=== PATIENT | male | born 1980 | race American Indian/Alaskan Native ===

== ENCOUNTER 2018-07-15 16:41 | Inpatient (IN) | payer OTHER ==
[2018-07-15] MEDS ORDERED: Sodium Chloride 0.9% 1,000 ML IV ONE ×3 (18:04→22:09)
--- NOTE | 2018-07-15 18:04 | C.PDOC ---
History Of Present Illness 38 y/o male presents to the ED for ETOH withdrawal. Last used days ago. Patient now reports nausea, vomiting, with clear emesis. Also complains of diffuse myalgias and shakes. Patient states trying to self-detox. Denies any seizures. Denies other drug use. + History of insulin-dependent diabetes mellitus, admits elevated glucose today. <Ivis White - Last Filed: 07/15/18 18:52> History Per: Patient History/Exam Limitations: no limitations Onset/Duration Of Symptoms: Days Current Symptoms Are (Timing): Still Present Modifying Factor(s): Alcohol Associated Symptoms: Other (withdrawal) <Ivis White - Last Filed: 07/15/18 18:52> <Joy Correia - Last Filed: 07/15/18 21:53> Time Seen by Provider: 07/15/18 17:53 Chief Complaint (Nursing): Substance Abuse Past Medical History Reviewed: Historical Data, Nursing Documentation, Vital Signs Vital Signs: Last Vital Signs Temp 98.7 F 07/15/18 16:51 Pulse 124 H 07/15/18 16:51 Resp 18 07/15/18 16:51 BP 168/95 H 07/15/18 16:51 Pulse Ox 99 07/15/18 16:51 - Medical History PMH: Diabetes (IDDM) Family History: States: No Known Family Hx - Social History Hx Tobacco Use: Yes Hx Alcohol Use: Yes Hx Substance Use: No - Immunization History Hx Tetanus Toxoid Vaccination: No Hx Influenza Vaccination: No Hx Pneumococcal Vaccination: No <Ivis White - Last Filed: 07/15/18 18:52> Vital Signs: Last Vital Signs Temp 98.7 F 07/15/18 16:51 Pulse 116 H 07/15/18 20:22 Resp 20 07/15/18 20:22 BP 140/88 07/15/18 20:22 Pulse Ox 96 07/15/18 20:22 <Joy Correia - Last Filed: 07/15/18 21:53> Review Of Systems Except As Marked, All Systems Reviewed And Found Negative. Constitutional: Negative for: Fever Cardiovascular: Negative for: Chest Pain Respiratory: Negative for: Shortness of Breath Gastrointestinal: Positive for: Nausea, Vomiting. Negative for: Hematemesis Musculoskeletal: Positive for: Other (generalized myalgias, shakes) Psych: Positive for: Withdrawal (from alcohol). Negative for: Suicidal ideation, Other (homicidal ideation) <Ivis White - Last Filed: 07/15/18 18:52> Physical Exam - Physical Exam Appears: Toxic (mildly toxic), In Acute Distress (moderate distress) Skin: Warm, Dry, No Jaundice Head: Atraumatic, Normacephalic Eye(s): bilateral: Normal Inspection, PERRL, EOMI, Other (ANICTERIC) Neck: Normal ROM, Supple Chest: Symmetrical Cardiovascular: Rhythm Regular (but tachycardic) Respiratory: Normal Breath Sounds, No Rales, No Rhonchi, No Wheezing, Other (NARD) Gastrointestinal/Abdominal: Soft, No Tenderness, No Distention, No Guarding Extremity: Bilateral: Atraumatic, Normal Color And Temperature, Normal ROM Pulses: Left Dorsalis Pedis: Normal, Right Dorsalis Pedis: Normal Neurological/Psych: Oriented x3, Other (No focal deficits; Calm, cooperative, +ETOH withdrawal) <Ivis White - Last Filed: 07/15/18 18:52> ED Course And Treatment - Laboratory Results Result Diagrams: 07/15/18 18:44 ECG: Interpreted By Me, Viewed By Me ECG Rhythm: Sinus Tachycardia Rate From EC O2 Sat by Pulse Oximetry: 99 (RA) Pulse Ox Interpretation: Normal <Ivis White - Last Filed: 07/15/18 18:52> - Laboratory Results Result Diagrams: 07/15/18 18:44 07/15/18 18:44 Lab Interpretation: Abnormal (Glucose 335, lactate 3.9, anion gap 28, HCO3 20) Reevaluation Time: 21:37 Reassessment Condition: Improved (after IV fluids, Ativan, Librium, Zofran and T oradol.) - Physician Consult Information Time Consulting Physician Contacted: 21:38 Physician Contacted: Randolph Faye Outcome Of Conversation: He will accept patient on his service for management of diabetes with alcohol withdrawal. <Joy Correia - Last Filed: 07/15/18 21:53> Progress - Re-Evaluation Re-evaluation Note: 07/15/18 18:04 D/W CRISIS NEREIDA, WILL EVAL IN ER - Data Reviewed Data Reviewed: Lab, EKG, Old records <Ivis White - Last Filed: 07/15/18 18:52> Medical Decision Making Medical Decision Making: Impression: Detox, alcohol abuse Initial Plan: --Labs --EKG --IV fluids --Ativan 1 mg IVP --Librium 100 mg PO --Toradol 30 mg IVP --Zofran 4 mg IVP --Pending crisis eval <Ivis White - Last Filed: 07/15/18 18:52> Medical Decision Makin:00 Patient endorsed to me at this time, awaiting crisis eval and final disposition. 21:39 No detox beds available. Paged Dr. Faye to discuss medical admission. <Joy Correia - Last Filed: 07/15/18 21:53> Disposition - Disposition Disposition Time: 19:00 <ChristopherIvis - Last Filed: 07/15/18 18:52> - Disposition Disposition Time: 21:52 - POA Present On Arrival: Poor Glycemic Control <Joy Correia - Last Filed: 07/15/18 21:53> - Disposition Disposition: HOSPITALIZED Condition: IMPROVED - Clinical Impression Clinical Impression: Alcohol withdrawal, Uncontrolled diabetes mellitus - Scribe Statement The provider has reviewed the documentation as recorded by the Scribe (Katerin Yousif) Provider Attestation: All medical record entries made by the Scribe were at my direction and personally dictated by me. I have reviewed the chart and agree that the record accurately reflects my personal performance of the history, physical exam, medical decision making, and the department course for this patient. I have also personally directed, reviewed, and agree with the discharge instructions and disposition. <ChristopherIvis - Last Filed: 07/15/18 18:52> Physician Patient Turnover Patient Signed Over To: Joy Correia Handoff Comments: fu: labs, dispo <Ivis White - Last Filed: 07/15/18 18:52>
[2018-07-15 18:47] LABS: BASO % 0.3 % (0.0-2.0); HEMOGLOBIN 15.8 g/dL (12.0-18.0); LYMPH # 0.5 K/uL (1.0-4.3); LYMPH % 3.4 % (20.0-40.0); MEAN CELL VOLUME 95.8 fL (80.0-94.0); MEAN CORPUSCULAR HEMOGLOBIN 31.7 pg (27.0-31.0); MEAN CORPUSCULAR HGB CONC 33.1 g/dL (33.0-37.0); MEAN PLATELET VOLUME 7.5 fL (7.2-11.7); MONO # 1.1 K/uL (0.0-0.8); MONO % 8.1 % (0.0-10.0); NEUT # 11.9 K/uL (1.8-7.0); NEUT % 88.2 % (50.0-75.0); PLATELET COUNT 247 K/uL (130-400); RBC 4.98 Mil/uL (4.40-5.90); WHITE BLOOD COUNT 13.5 K/uL (4.8-10.8)
[2018-07-15 18:54] LABS: URINE BACTERIA RARE (<OCC); URINE BILIRUBIN NEGATIVE (NEGATIVE); URINE BLOOD NEGATIVE (NEGATIVE); URINE CLARITY Clear (Clear); URINE COLOR Straw (YELLOW); URINE GLUCOSE (UA) 3+ mg/dL (Normal); URINE LEUKOCYTE ESTERASE NEG Leu/uL (Negative); URINE PROTEIN NEGATIVE (NEGATIVE); URINE UROBILINOGEN NORMAL mg/dL (0.2-1.0)
[2018-07-15 18:57] LABS: VENOUS BLOOD GAS BASE EXCESS -5.4 mmol/L (0.0-2.0); VENOUS BLOOD GAS PCO2 38 mmHg (40-60); VENOUS BLOOD GAS PO2 41 mm/Hg (30-55); VENOUS BLOOD PH 7.33 (7.32-7.43)
[2018-07-15 19:02] LABS: ALB/GLOB RATIO 1.6 (1.0-2.1); ALBUMIN 4.8 g/dL (3.5-5.0); ALT/SGPT 54 U/L (21-72); AST/SGOT 56 U/L (17-59); BLOOD UREA NITROGEN 19 mg/dL (9-20); CALCIUM 10.1 mg/dl (8.6-10.4); GFR NON-AFRICAN AMERICAN > 60
[2018-07-15 19:13] LABS: BARBITURATES, UR NEGATIVE (NEGATIVE); BENZODIAZEPINES, UR NEGATIVE (NEGATIVE); OPIATES, UR NEGATIVE (NEGATIVE); PHENCYCLIDINE, UR NEGATIVE (NEGATIVE)
[2018-07-15 19:19] LABS: BANDS 1 % (0-2); LARGE PLATELETS PRESENT; LYMPHOCYTE 4 % (20-40); MONOCYTE 7 % (0-10); NEUTROPHIL 88 % (50-75); PLATELET ESTIMATE NORMAL (NORMAL); TOTAL CELLS COUNTED 100
[2018-07-15] MEDS ORDERED: Sodium Chloride 0.9% 2,000 ML ONE (19:25)
[2018-07-16 00:55] VITALS: RESP 20
[2018-07-16 08:37] LABS: HEMOGLOBIN 13.9 g/dL (12.0-18.0); MEAN CELL VOLUME 95.8 fL (80.0-94.0); MEAN CORPUSCULAR HEMOGLOBIN 32.7 pg (27.0-31.0); MEAN CORPUSCULAR HGB CONC 34.1 g/dL (33.0-37.0); MEAN PLATELET VOLUME 7.9 fL (7.2-11.7); RBC 4.25 Mil/uL (4.40-5.90); RED CELL DISTRIBUTION WIDTH 13.4 % (11.5-14.5); WHITE BLOOD COUNT 7.4 K/uL (4.8-10.8)
[2018-07-16] MEDS: (Novolog) Insulin Aspart, Recombinant 100 u/ml 10 ml vial SC SCH ×5 (08:54→22:20)
[2018-07-16 09:01] LABS: ALB/GLOB RATIO 1.5 (1.0-2.1); ALBUMIN 3.7 g/dL (3.5-5.0); ALT/SGPT 44 U/L (21-72); AST/SGOT 36 U/L (17-59); BLOOD UREA NITROGEN 21 mg/dL (9-20); CALCIUM 8.9 mg/dl (8.6-10.4); GFR NON-AFRICAN AMERICAN > 60
[2018-07-16] MEDS ORDERED: (Novolog) Insulin Aspart, Recombinant 100 u/ml 10 ml vial SC SCH ×2 (10:00→11:30)
[2018-07-16] MEDS ORDERED: Thiamine 100 mg/ml Inj IM SCH (10:00)
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
--- NOTE | 2018-07-16 12:19 | PCM.PSYCH ---
Initial Psychiatric Evaluation - Initial Psychiatric Evaluation Type of Admission: Voluntary Legal Status: Capacity Chief Complaint (in patient's own words): "Alcohol" History of Present Illness and Precipitating Events: Patient is a 38-year-old male, single with no children. He lives by himself at an apartment in [place] and works in a bakery. Consultation was asked for worsening alcohol withdrawal symptoms. Patient states that he drinks 6-10 cans/bottles of beer every day for a month. He states that he has been drinking alcohol during all his adult life. Patient denies any past or present drug use. He smokes cigarettes about ppd. Patient states that yesterday, he had severe nausea, vomiting, chills, and myalgia because he was trying to stop drinking alcohol by himself. His last drink was a couple of days ago. Patient reports that he is currently feeling better compared to yesterday but he still complains about squeezing chest pain. Medicine is on board for the treatment of his chest pain. Patient states that he never tried detox or rehab before. He was attending an outpatient program for alcohol addiction but he stopped going 2 years ago. Patient says he was feeling depressed in the past few months and went to see a psychiatrist in [place] a month ago and he was prescribed with Paxil 10mg. He states that he feels okay today. He denies having any suicidal or homicidal ideation. He reports that he had an episode of panic attack many years ago but never been hospitalized for any psychiatric problems. Psych hx: depression, panic attacks Medical hx: DM type I, Sleep apnea Family hx: denies. Current Medications: Active Medications Generic Name Dose Route Start Last Admin Trade Name Freq PRN Reason Stop Dose Admin Chlordiazepoxide 25 mg 07/16/18 12:09 Librium PO Q4H PRN Alcohol Withdrawal Chlordiazepoxide 0 mg 07/16/18 12:00 Librium PO 07/20/18 11:59 Q6 BASHIR Taper Clonidine HCl 0.1 mg 07/16/18 12:09 Catapres PO Q4H PRN Symptoms of alcohol withdrawl Folic Acid 1 mg 07/16/18 11:30 Folic Acid PO DAILY [facility] Heparin Sodium (Porcine) 5,000 units 07/16/18 10:00 07/16/18 09:23 Heparin SC 5,000 units Q12 BASHIR Administration Influenza Virus Vaccine 60 mcg 07/18/18 10:00 Fluzone Quad [id number] IM 07/18/18 10:01 .ONCE ONE Insulin Aspart 0 unit 07/16/18 09:00 07/16/18 08:54 Novolog SC 2 units ACHS BASHIR Administration Protocol Lorazepam 2 mg 07/15/18 22:09 Ativan IVP Q4H PRN Agitation Multivitamins 1 tab 07/16/18 12:15 Hexavitamin PO DAILY B[facility] Ondansetron HCl 4 mg 07/15/18 22:09 Zofran Inj IVP Q6H PRN nausea Pantoprazole Sodium 40 mg 07/16/18 11:45 Protonix Ec Tab PO DAILY [facility] Pneumococcal Polyvalent Vaccine 0.5 ml 07/18/18 10:00 Pneumovax 23 Vaccine IM 07/18/18 10:01 .ONCE ONE Thiamine HCl 100 mg 07/17/18 10:00 Vitamin B1 Tab PO DAILY [facility] Trazodone HCl 50 mg 07/16/18 12:09 Desyrel PO HS PRN Insomnia Past Psychiatric History - Past Psychiatric History Previous Treatment History: Intensive Outpatient Pertinent Medical Hx (Current Medical&Sleep Prob, Allergies): Allergies Allergy/AdvReac Type Severity Reaction Status Date / Time No Known Allergies Allergy Verified 07/15/18 16:54 Review of Systems - Neurological Neurological: UNREMARKABLE - Psychiatric Psychiatric: Abnormal Sleep Pattern, Anxiety. absent: Hallucinations, Homicidal Ideation, Paranoia, Suicidal Ideation Mental Status Examination - Personal Presentation Personal Presentation: Looks stated age - Affect Affect: Constricted - Motor Activity Motor Activity: Calm - Reliability in Providing Information Reliability in Providing Information: Good - Speech Speech: Organized - Mood Mood: Anxious - Formal Thought Process Formal Thought Process: No Impairment - Cognitive Functions Orientation: Person, Place, Situation Sensorium: Alert Attention/Concentration: Attentive Estimate of Intelligence: Average Judgement: Intact, as evidence by: Insight regarding need for hospitalization Memory: Recent intact, as evidence by: Ability to recall events of the day, Remote intact, as evidenced by: Abilit to recall sig. life events - Risk Risk: Withdrawal, Diminished functioning - Strength & Assets Inventory Strength & Assets Inventory: Employment history, Cooperative - Limitations Limitations: Other DSM 5 DX - DSM 5 DSM 5 Diagnosis: Alcohol withdrawal Alcohol use d/o - severe JAJA, panic d/o Depressive d/o - unspecified - Recommended/Plan of Treatment Treatment Recommendations and Plan of Treatment: Taper with librium Gabapentin for augmentation if needed Switch to lexapro As needed medications All risks, benefits and alternatives of the meds discussed, and the pt agreed and understood. Supportive therapy and psychoeducation TN for abstinence CBT for relapse prevention Encourage MAT Refer to rehab or IOP, and self-help groups Teach healthy lifestyle methods, i.e. diet, exercise, meditation Smoking cessation with TN Nicotine patch if needed 34 min
[2018-07-16] MEDS: Pantoprazole 40 mg EC Tab PO SCH (12:31)
[2018-07-16] MEDS: Multiple Vitamins Tab PO SCH (12:31)
--- NOTE | 2018-07-16 16:07 | CARD ---
APPROVED REPORT Date of service: 07/15/2018 EKG Measurement Heart [id number] <Conclusion> Sinus tachycardia Otherwise normal ECG
[2018-07-17 07:17] LABS: BASO % 0.3 % (0.0-2.0); EOS % 0.4 % (0.0-4.0); HEMOGLOBIN 13.9 g/dL (12.0-18.0); LYMPH # 1.1 K/uL (1.0-4.3); MEAN CELL VOLUME 96.5 fL (80.0-94.0); MEAN CORPUSCULAR HEMOGLOBIN 32.5 pg (27.0-31.0); MEAN CORPUSCULAR HGB CONC 33.7 g/dL (33.0-37.0); MEAN PLATELET VOLUME 8.2 fL (7.2-11.7); MONO # 0.6 K/uL (0.0-0.8); NEUT # 3.4 K/uL (1.8-7.0); NEUT % 66.3 % (50.0-75.0); RBC 4.28 Mil/uL (4.40-5.90); WHITE BLOOD COUNT 5.1 K/uL (4.8-10.8)
[2018-07-17] MEDS: (Novolog) Insulin Aspart, Recombinant 100 u/ml 10 ml vial SC SCH ×2 (07:55→11:26)
[2018-07-17 08:05] VITALS: BP 145/95; PULSE 84; TEMP 97.6; O2SAT 99
[2018-07-17 08:17] LABS: LDL CHOLESTEROL 133 mg/dL (0-129)
[2018-07-17 08:19] LABS: ALB/GLOB RATIO 1.3 (1.0-2.1); ALBUMIN 3.4 g/dL (3.5-5.0); ALT/SGPT 56 U/L (21-72); AST/SGOT 59 U/L (17-59); BLOOD UREA NITROGEN 13 mg/dL (9-20); CALCIUM 8.5 mg/dl (8.6-10.4); GFR NON-AFRICAN AMERICAN > 60; HDL CHOLESTEROL 81 mg/dL (30-70)
[2018-07-17] MEDS: Multiple Vitamins Tab PO SCH (09:43)
[2018-07-17] MEDS: Pantoprazole 40 mg EC Tab PO SCH (09:43)
--- NOTE | 2018-07-17 11:46 | CP.PCM.PN ---
Subjective - Date & Time of Evaluation Date of Evaluation: 07/17/18 Time of Evaluation: 11:30 - Subjective Subjective: AFTERSCHOOL NOTES patient seen today denies any tremors, abdominal pain N/V/D , tolerating diet 38 yr old male with pmhx of DM admitted for ETOH withdrawal and Dr. Teresa consulted started on CIWA protocol , Patient clinically stable , Malick Mcmahon recommends f/u IOP, and self-help groups seen by Dr. Faye today , cleared for discharge home today SW provided information given for IOP discharge plan discussed with patient, who understands and agrees with plan patient instructed to abstain from alcohol Objective - Vital Signs/Intake and Output Vital Signs (last 24 hours): Temp Pulse Resp BP Pulse Ox 97.6 F 84 20 145/95 H 99 07/17/18 08:00 07/17/18 08:00 07/17/18 08:00 07/17/18 08:00 07/17/18 08:00 Intake and Output: 07/17/18 07/17/18 06:59 18:59 Intake Total 400 Balance 400 - Medications Medications: Current Medications Chlordiazepoxide (Librium) 25 mg PO Q4H PRN PRN Reason: Alcohol Withdrawal Chlordiazepoxide (Librium) 25 mg PO Q6 BASHIR; Taper Stop: 07/20/18 11:59 Last Admin: 07/17/18 05:35 Dose: 25 mg Clonidine HCl (Catapres) 0.1 mg PO Q4H PRN PRN Reason: Symptoms of alcohol withdrawl Escitalopram Oxalate (Lexapro) 10 mg PO DAILY [facility] Last Admin: 07/17/18 09:43 Dose: 10 mg Folic Acid (Folic Acid) 1 mg PO DAILY [facility] Last Admin: 07/17/18 09:43 Dose: 1 mg Heparin Sodium (Porcine) (Heparin) 5,000 units SC Q12 BASHIR Last Admin: 07/17/18 09:43 Dose: 5,000 units Influenza Virus Vaccine (Fluzone Quad [id number]) 60 mcg IM .ONCE ONE Stop: 07/18/18 10:01 Insulin Aspart (Novolog) 0 unit SC ACHS [facility]; Protocol Last Admin: 07/17/18 11:26 Dose: 4 units Lorazepam (Ativan) 2 mg IVP Q4H PRN PRN Reason: Agitation Multivitamins (Hexavitamin) 1 tab PO DAILY [facility] Last Admin: 07/17/18 09:43 Dose: 1 tab Ondansetron HCl (Zofran Inj) 4 mg IVP Q6H PRN PRN Reason: nausea Pantoprazole Sodium (Protonix Ec Tab) 40 mg PO DAILY [facility] Last Admin: 07/17/18 09:43 Dose: 40 mg Pneumococcal Polyvalent Vaccine (Pneumovax 23 Vaccine) 0.5 ml IM .ONCE ONE Stop: 07/18/18 10:01 Thiamine HCl (Vitamin B1 Tab) 100 mg PO DAILY [facility] Last Admin: 07/17/18 09:43 Dose: 100 mg Trazodone HCl (Desyrel) 50 mg PO HS PRN PRN Reason: Insomnia - Labs Labs: 07/17/18 07:06 07/17/18 07:06
[2018-07-17] MEDS ORDERED: Pneumococcal 23-Valent Vaccine IM ONE (12:00)
[2018-07-17] MEDS ORDERED: Influenza Vaccine 60 MCG/0.5 ML SYR (3 yr & up) IM ONE (12:00)
--- NOTE | 2018-07-18 10:10 | HP ---
HISTORY OF PRESENT ILLNESS: A 38-year-old male who was admitted to the hospital with a chief complaint of weakness, fatigue, tiredness, and abdominal pain. The patient took a large amount of alcohol, came with with acidosis and elevated blood sugar. The patient uses insulin pump. The patient admitted consuming large amount of alcohol. PHYSICAL EXAMINATION: GENERAL: The patient is awake, alert, and oriented. VITAL SIGNS: Temperature 98, pulse 90. HEENT: Within normal limits. NECK: Supple. CHEST: Symmetrical. HEART: Regular. ABDOMEN: Soft. EXTREMITIES: No edema. ASSESSMENT AND PLAN: The patient suffers from acidosis, hyperglycemia, alcoholic acidosis. The patient is to get bed rest, intravenous fluids, supportive care. Randolph Faye MD
--- NOTE | 2018-07-18 14:55 | CARD ---
APPROVED REPORT Date of service: 07/16/2018 EKG Measurement Heart [id number] <Conclusion> Normal sinus rhythm Normal ECG
== END 2018-07-17 13:45 | disposition home or self-care (01) | DRG 895 ==
LOC: C.ER 16:41 → C.9E 21:54 → C.3T 23:28
PROVIDERS: ADMIT Internal Medicine Pulmonary Disease; ATTEND Internal Medicine Pulmonary Disease
PROC: HZ2ZZZZ Detoxification Services for Substance Abuse Treatment (ICD-10-PCS; principal; 2018-07-15)
PROC: HZ59ZZZ Individual Psychotherapy for Substance Abuse Treatment, Supportive (ICD-10-PCS; 2018-07-15)
PROC: GZ3ZZZZ Medication Management (ICD-10-PCS; 2018-07-15)
PROC: HZ80ZZZ Medication Management for Substance Abuse Treatment, Nicotine Replacement (ICD-10-PCS; 2018-07-15)
PROC: HZ46ZZZ Group Counseling for Substance Abuse Treatment, Psychoeducation (ICD-10-PCS; 2018-07-15)
DX: F10.230 Alcohol dependence with withdrawal, uncomplicated (principal); E10.65 Type 1 diabetes mellitus with hyperglycemia; F32.9 Major depressive disorder, single episode, unspecified; F41.0 Panic disorder [episodic paroxysmal anxiety]; F41.1 Generalized anxiety disorder; F17.210 Nicotine dependence, cigarettes, uncomplicated; G47.30 Sleep apnea, unspecified; K21.9 Gastro-esophageal reflux disease without esophagitis; Y90.0 Blood alcohol level of less than 20 mg/100 ml; Z23 Encounter for immunization; Z79.4 Long term (current) use of insulin; Z82.3 Family history of stroke; Z82.49 Family history of ischemic heart disease and other diseases of the circulatory system